=== PATIENT | female | born 1985 | race Caucasian/White ===

== ENCOUNTER 2022-11-14 10:30 | Outpatient (REF) | payer OTHER, SELFPAY ==
[2022-11-17 19:11] LABS: Age Gdln ACOG Testing Note (.); HPV Aptima Negative (Negative); IGP, Aptima HPV, rfx 16/18,45 Note (.)
== END 2022-11-14 10:31 | disposition home or self-care (01) ==
LOC: LAB 10:30
PROVIDERS: Visit Provider Obstetrics & Gynecology
DX: Z01.419 Encounter for gynecological examination (general) (routine) without abnormal findings (principal)
CPT/HCPCS: 87624; G0145

== ENCOUNTER 2023-01-24 23:42 | Emergency (ER) | payer OTHER, SELFPAY ==
[2023-01-24 23:51] VITALS: BP 158/98; PULSE 77; RESP 16; TEMP 36.6; O2SAT 96; BMI 26.5
--- NOTE | 2023-01-24 23:55 | ED_ITS ---
HPI - Chest Pain General Chief Complaint: Chest Pain Stated Complaint: CHEST PAIN Time Seen by Provider: 01/24/23 23:55 Source: patient and family Mode of arrival: Wheelchair Limitations: no limitations History of Present Illness HPI narrative: Patient presents to emergency department complaining of chest pain. Patient states she developed left-sided chest pain at about 10 PM. States the pain radiated to her left upper arm. She has a history of hypertension and was started on a new blood pressure medication losartan. She states the pain is not related to exertion. She was just sitting down when it started. Also alcohol and question she states she drinks 12 pack at least 4 times a week. She denies any nausea, vomiting, diarrhea, constipation, abdominal pain. She denies any recent upper respiratory infection symptoms. She states she was feeling like her heart was racing when it started. She was concerned because her father had a heart attack in his 40s, so they made her come to be evaluated. Patient states that she's been here she is feeling better. She denies any shortness of breath.Patient denies any history of drug abuse. Risk Factors Coronary artery disease risk factors: hypertension and family history of CAD before age 50 Related Data Home Medications Medication Instructions Recorded Confirmed losartan 50 mg-hydrochlorothiazide 1 tab PO DAILY 01/24/23 01/24/23 12.5 mg tablet Allergies Allergy/AdvReac Type Severity Reaction Status Date / Time No Known Drug Allergies Allergy Verified 01/24/23 23:50 Review of Systems ROS Status of ROS 10 or more systems reviewed and unremarkable except as noted in history and below [facility] PFS Social History Smoking status: Current every day smoker Exam Narrative Exam Narrative: Nurses notes and vital signs reviewed and patient is not hypoxic. General: Nontoxic, Smells alcohol ,Well-appearing and in no apparent distress. Skin: Warm, dry, no pallor noted. No Rash Head: Normocephalic, atraumatic. Neck: Supple, non-tender. Eye: Pupils are equal, round and EOMI. No scleral icterus. Ears, Nose, Mouth, and Throat: TM clear, no posterior oropharynx erythema or nasal mucosal hypertrophy, uvula is mid-line Oral mucosa is moist Cardiovascular: Regular Rate and Rhythm without murmur, gallop or rub. Respiratory: No accessory muscle use or respiratory distress. Lungs are clear to auscultation, no wheezing, rales or rhonchi Chest Wall: no tenderness Back: No midline thoracic or lumbar vertebral tenderness. No CVA tenderness Musculoskeletal: normal ROM, no calf or popliteal tenderness, no lower extremity edema/swelling GI: Abdomen is soft, non-distended. Normal bowel sounds. No masses appreciated. No tenderness to palpation. No rebound, guarding, or rigidity noted. Neurological: A&O x4. No cranial nerve dysfunction observed. No truncal ataxia. Moves all extremities. Sensation intact. Psychiatric: Cooperative and interactive. Normal mood and affect. Constitutional Vital Signs, click to edit/add: Last Vital Signs Temp 97.8 F 01/24/23 23:51 Pulse 77 01/24/23 23:51 Resp 16 01/24/23 23:51 BP 158/98 H 01/24/23 23:51 Pulse Ox 96 01/24/23 23:51 O2 Del Method Room Air 01/24/23 23:51 Course Vital Signs Vital signs: Vital Signs Temperature 97.8 F 01/24/23 23:51 Pulse Rate 77 01/24/23 23:51 Respiratory Rate 16 01/24/23 23:51 Blood Pressure 158/98 H 01/24/23 23:51 Pulse Oximetry 96 01/24/23 23:51 Oxygen Delivery Method Room Air 01/24/23 23:51 Temperature 97.8 F 01/24/23 23:51 Pulse Rate 77 01/24/23 23:51 Respiratory Rate 16 01/24/23 23:51 Blood Pressure 158/98 H 01/24/23 23:51 Pulse Oximetry 96 01/24/23 23:51 Oxygen Delivery Method Room Air 01/24/23 23:51 MDM - Chest Pain MDM Narrative Medical decision making narrative: Patient states is pain-free in the emergency department. EKG shows sinus rhythm at 72 bpm. Normal axis, no acute ischemic changes. Patient's heart score is less than 3. Patient was advised to cut down on alcohol. She'll follow up with primary care doctor regarding her stress test or an echocardiogram as an outpatient. At this time the patient is without objective evidence of an acute process requiring hospitalization or inpatient management. The patient has remained hemodynamically stable. No additional indication for emergent studies at this time. I answered all questions. Discussed discharge instructions including standard anticipatory guidance and what should prompt a return to the emergency department, including if they get worse are not getting better or develops any new or concerning symptoms. I've given them specific time frame in which to follow-up, and who to follow-up with. The patient demonstrates understanding. Patient is nontoxic and stable for discharge with outpatient follow-up. This note was created with the assistance of a speech recognition program. Although the intention is to generate documents that actually reflects the content of the visit, no guarantees can be provided that every mistake has been identified and corrected by editing. Differential Diagnosis Differential diagnosis: Likely fracture of rib, pneumothorax, atypical chest pain, costochondritis and chest pain Medical Records Data Attestation: I reviewed the patient's medical records. Lab Data Attestation: I reviewed the patient's lab results. Labs: Lab Results 01/24/23 01/25/23 Range/Units 23:59 01:00 WBC 8.1 (4.0-11.0) 10^3/uL RBC 4.37 (4.20-5.40) 10^6/uL Hgb 14.2 (12.0-16.0) g/dL Hct 40.7 (36.0-48.0) % MCV 93.1 (81.0-99.0) fL MCH 32.5 (26.7-34.0) pg MCHC 34.9 (29.9-35.2) g/dL RDW 13.6 (11.0-15.0) % Plt Count 173 (150-450) 10^3/uL MPV 9.9 (9.5-13.5) fL Neut % (Auto) 55.2 (43.0-75.0) % Lymph % (Auto) 33.2 (20.5-60.0) % [place] % (Auto) 9.1 (1.7-12.0) % Eos % (Auto) 1.4 (0.9-7.0) % Baso % (Auto) 0.7 (0.2-2.0) % Neut # (Auto) 4.5 (1.4-6.5) 10^3/uL Lymph # (Auto) 2.7 (1.2-3.8) 10^3/uL [place] # (Auto) 0.7 (0.3-0.8) 10^3/uL Eos # (Auto) 0.1 (0.0-0.7) 10^3/uL Baso # (Auto) 0.1 (0.0-0.1) 10^3/uL Abs Immat Gran (auto) 0.03 (0.00-0.03) 10^3/uL Imm/Tot Granulo (auto) 0.4 (0.0-0.5) % PT 10.3 (9.0-11.6) sec INR 0.97 APTT 34.1 (22.3-36.2) sec Sodium 128 L (136-145) mmol/L Potassium 3.4 L (3.5-5.1) mmol/L Chloride 94 L (98-107) mmol/L Carbon Dioxide 24.6 (21.0-32.0) mmol/L Anion Gap 12.8 BUN 13.0 (7.0-18.0) mg/dL Creatinine 0.64 (0.55-1.02) mg/dL Est GFR ( Amer) >60 (>=60) Est GFR (Non-Af Amer) >60 (>=60) BUN/Creatinine Ratio 20.3 Glucose 85 (74-106) mg/dL Calcium 7.7 L (8.5-10.1) mg/dL Total Bilirubin 0.5 (0.2-1.0) mg/dL AST 34 (15-37) U/L ALT 59 (14-59) U/L Alkaline Phosphatase 58 (46-116) U/L Troponin I High Sens <4.0 L <4.0 L (4.0-51.3) pg/mL Total Protein 7.7 (6.4-8.2) g/dL Albumin 4.1 (3.4-5.0) g/dL Globulin 3.6 g/dL Albumin/Globulin Ratio 1.1 Lipase 82.0 (73.0-393.0) U/L Ethanol Quant 299 mg/dL ECG Data Attestation: I personally reviewed and interpreted this ECG as follows: Heart Score History: Slightly/Non-Suspicious ECG: Normal Age: <45 years Risk Factors: 1 or 2 Risk Factors Troponin: <Normal Limit Total Heart Score Recommendations & Risks:: 1 Discharge Plan Discharge Chief Complaint: Chest Pain Clinical Impression: Alcohol abuse, Chest pain Patient Disposition: Home, Self-Care Time of Disposition Decision: 01:42 Condition: Good Mode of Transportation: EMS Prescriptions / Home Meds: No Action losartan-hydrochlorothiazide 50-12.5 mg tablet 1 tab PO DAILY Instructions: Chest Pain (ED), Alcohol Use Disorder (ED) Stand Alone Forms: Portal Instructions Referrals: Jerry Jensen DO [Primary Care Provider] - 1 week
--- NOTE | 2023-01-24 23:56 | ECG_ITS ---
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
--- NOTE | 2023-01-24 23:56 | XR_ITS ---
The [address] [address] Patient Name: KIRSTEN ZHU MRN: [id number] date: 1985 Sex: F Assigned Patient Location: ER Current Patient Location: ED.MAIN Accession/Order Number: [id number] Exam Date: 01/24/2023 23:58 Report Date: 01/25/2023 00:24 At the request of: IDANIA DRAKE Procedure: XR chest 1V EXAM: XR chest 1V HISTORY: Left-sided chest pain and left arm numbness. cp COMPARISON: None available TECHNIQUE: Single frontal view chest x-ray FINDINGS: No lung consolidation, large pleural effusions, pneumothorax, or acute bony abnormality. Cardiac size is unremarkable. XR/XR chest 1V IMPRESSION: No radiographic evidence for acute chest abnormality. Electronically authenticated by: MARGY SANZ Date: 01/25/2023 00:24
[2023-01-25 00:16] LABS: Basophils Absolute Auto 0.1 10^3/uL (0.0-0.1); Basophils Percent Auto 0.7 % (0.2-2.0); Eosinophils Absolute Auto 0.1 10^3/uL (0.0-0.7); Eosinophils Percent Auto 1.4 % (0.9-7.0); Hematocrit 40.7 % (36.0-48.0); Hemoglobin 14.2 g/dL (12.0-16.0); Immature Granulocytes Abs Auto 0.03 10^3/uL (0.00-0.03); Immature Granulocytes Pct Auto 0.4 % (0.0-0.5); Lymphocytes Absolute Auto 2.7 10^3/uL (1.2-3.8); Lymphocytes Percent Auto 33.2 % (20.5-60.0); Mean Corpuscular HGB Conc 34.9 g/dL (29.9-35.2); Mean Corpuscular Hemoglobin 32.5 pg (26.7-34.0); Mean Corpuscular Volume 93.1 fL (81.0-99.0); Mean Platelet Volume 9.9 fL (9.5-13.5); Monocytes Absolute Auto 0.7 10^3/uL (0.3-0.8); Monocytes Percent Auto 9.1 % (1.7-12.0); Neutrophils Absolute Auto 4.5 10^3/uL (1.4-6.5); Neutrophils Percent Auto 55.2 % (43.0-75.0); Platelet Count 173 10^3/uL (150-450); Red Blood Count 4.37 10^6/uL (4.20-5.40); Red Cell Distribution Width 13.6 % (11.0-15.0); White Blood Count 8.1 10^3/uL (4.0-11.0)
[2023-01-25 00:24] LABS: INR 0.97; Partial Thromboplastin Time 34.1 sec (22.3-36.2); Prothrombin Time 10.3 sec (9.0-11.6)
[2023-01-25 00:28] LABS: Alanine Aminotransferase 59 U/L (14-59); Albumin Globulin Ratio 1.1; Albumin Level 4.1 g/dL (3.4-5.0); Alkaline Phosphatase 58 U/L (46-116); Anion Gap 12.8; Aspartate Amino Transferase 34 U/L (15-37); BUN Creatinine Ratio 20.3; Bilirubin Total 0.5 mg/dL (0.2-1.0); Calcium 7.7 mg/dL (8.5-10.1); Carbon Dioxide 24.6 mmol/L (21.0-32.0); Chloride 94 mmol/L (98-107); Estimated GFR (African America >60 (>=60); Estimated GFR (Non-African Ame >60 (>=60); Ethanol 299 mg/dL; Globulin 3.6 g/dL; Glucose 85 mg/dL (74-106); Potassium 3.4 mmol/L (3.5-5.1); Sodium 128 mmol/L (136-145); Total Protein 7.7 g/dL (6.4-8.2); Troponin I High Sensitivity <4.0 pg/mL (4.0-51.3)
[2023-01-25] MEDS: 0.9 % SODIUM CHLORIDE 1,000 ML 1000 ML IV (00:59)
[2023-01-25 01:22] LABS: Troponin I High Sensitivity <4.0 pg/mL (4.0-51.3)
== END 2023-01-25 01:54 | disposition home or self-care (01) ==
PROVIDERS: Emergency Provider Emergency Medicine; PCP Internal Medicine
DX: R07.9 Chest pain, unspecified (principal); F10.10 Alcohol abuse, uncomplicated; Y90.8 Blood alcohol level of 240 mg/100 ml or more; I10 Essential (primary) hypertension; Z79.899 Other long term (current) drug therapy; Z82.49 Family history of ischemic heart disease and other diseases of the circulatory system; F17.210 Nicotine dependence, cigarettes, uncomplicated
CPT/HCPCS: 36415; 71045; 80053; 80320; 83690; 84484; 85025; 85610; 85730; 93005; 99285

== ENCOUNTER 2023-06-02 10:36 | Outpatient (OUT) | payer OTHER, SELFPAY ==
[2023-06-02 11:07] LABS: Basophils Absolute Auto 0.1 10^3/uL (0.0-0.1); Eosinophils Absolute Auto 0.1 10^3/uL (0.0-0.7); Eosinophils Percent Auto 1.6 % (0.9-7.0); Hematocrit 40.9 % (36.0-48.0); Hemoglobin 13.9 g/dL (12.0-16.0); Immature Granulocytes Abs Auto 0.02 10^3/uL (0.00-0.03); Immature Granulocytes Pct Auto 0.4 % (0.0-0.5); Lymphocytes Absolute Auto 1.5 10^3/uL (1.2-3.8); Lymphocytes Percent Auto 30.5 % (20.5-60.0); Mean Corpuscular Hemoglobin 32.1 pg (26.7-34.0); Mean Corpuscular Volume 94.5 fL (81.0-99.0); Mean Platelet Volume 9.8 fL (9.5-13.5); Monocytes Absolute Auto 0.6 10^3/uL (0.3-0.8); Neutrophils Absolute Auto 2.8 10^3/uL (1.4-6.5); Neutrophils Percent Auto 55.5 % (43.0-75.0); Platelet Count 171 10^3/uL (150-450); Red Blood Count 4.33 10^6/uL (4.20-5.40); Red Cell Distribution Width 13.4 % (11.0-15.0)
[2023-06-02 13:45] LABS: Alanine Aminotransferase 81 U/L (14-59); Albumin Level 3.8 g/dL (3.4-5.0); Alkaline Phosphatase 60 U/L (46-116); Anion Gap 9.8; Aspartate Amino Transferase 53 U/L (15-37); Bilirubin Total 0.5 mg/dL (0.2-1.0); Calcium 8.6 mg/dL (8.5-10.1); Carbon Dioxide 24.9 mmol/L (21.0-32.0); Chloride 95 mmol/L (98-107); Chol HDL Ratio 2.8; Cholesterol 222 mg/dL (<=200); Estimated GFR (African America >60 (>=60); Estimated GFR (Non-African Ame >60 (>=60); Globulin 3.7 g/dL; Glucose 82 mg/dL (74-106); HDL Cholesterol 78 mg/dL (40-60); Potassium 3.7 mmol/L (3.5-5.1); Sodium 126 mmol/L (136-145); Total Protein 7.5 g/dL (6.4-8.2); Triglycerides 80 mg/dL (<=150)
== END 2023-06-02 10:37 | disposition home or self-care (01) ==
LOC: LAB 10:38
PROVIDERS: PCP Internal Medicine; Visit Provider Internal Medicine
DX: Z00.00 Encounter for general adult medical examination without abnormal findings (principal)
CPT/HCPCS: 36415; 80053; 80061; 85025

== ENCOUNTER 2024-02-17 19:45 | Emergency (ER) | payer OTHER, SELFPAY ==
[2024-02-17] VITALS (20 sets, daily range): BP systolic 142–170; BP diastolic 92–120; PULSE 69–89; TEMP 36.7; O2SAT 97–100; BMI 25.6
--- NOTE | 2024-02-17 19:57 | CT_ITS ---
The [address] [address] Patient Name: KIRSTEN ZHU MRN: [id number] date: 1985 Sex: F Assigned Patient Location: ER Current Patient Location: Accession/Order Number: [id number] Exam Date: 02/17/2024 20:34 Report Date: 02/17/2024 21:23 At the request of: NATACHA BULLARD Procedure: CT head/brain wo con EXAMINATION: CT head/brain wo con TECHNIQUE: Axial CT images were obtained through the brain. Sagittal and coronal reformatted images were also obtained. Dose reduction techniques were achieved by using automated exposure control and/or adjustment of mA and/or kV according to patient size and/or use of iterative reconstruction technique. HISTORY: dizziness COMPARISON: None. FINDINGS: Intracranial Bleed: No evidence for acute intracranial bleed. Intracranial Mass: No evidence for mass lesion. No mass effect or midline shift. Extra-axial spaces: The ventricular system is normal caliber. White/Vasquez Matter: No acute cortical infarct. No significant white matter abnormality. Skull/Scalp: No evidence for skull fracture or lesion. Orbits and sinuses: The orbits appear unremarkable. The visualized paranasal sinuses are clear. CT/CT head/brain wo con IMPRESSION: No acute intracranial pathology. Electronically authenticated by: TISHA BASS Date: 02/17/2024 21:23
--- NOTE | 2024-02-17 19:57 | XR_ITS ---
The [address] [address] Patient Name: KIRSTEN ZHU MRN: [id number] date: 1985 Sex: F Assigned Patient Location: ER Current Patient Location: Accession/Order Number: [id number] Exam Date: 02/17/2024 20:34 Report Date: 02/17/2024 21:34 At the request of: NATACHA BULLARD Procedure: XR chest 2V EXAM: XR chest 2V TECHNIQUE: PA and lateral view of the chest HISTORY: dizziness COMPARISON: None. FINDINGS: The heart and mediastinum are unremarkable. The lung [place] are clear of any acute infiltrate, effusion or mass. No acute bony abnormality. XR/XR chest 2V IMPRESSION: No acute pulmonary disease. Electronically authenticated by: TISHA BASS Date: 02/17/2024 21:34
--- NOTE | 2024-02-17 19:57 | ECG_ITS ---
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
--- OUTSIDE RECORDS SUMMARY | 2024-02-17 20:05 | XMS_ITS | CCD ---
Author Organization [facility] Care Team Providers Care Motor Equipment Lieutenant Name Role Phone DAPHNE, DR JIMÉNEZ Admitting Unavailable DAPHNE, DR JIMÉNEZ Attending Unavailable REQUEST, DR RAINES LISTED Primary Care Unavaila ble DAPHNE, DR JIMÉNEZ Admitting Unavailable DAPHNE, DR JIMÉNEZ Attending Unavailable REQUEST, NONE LISTED Primary Care Unavaila ble DAPHNE, DR JIMÉNEZ Consulting Unavailable SHARP, BOY Consulting Unavailable KUCHIPUDI, MARY Consulting Unavailable LUDY, RAHAT Tellez Consulting Unavailable DAPHNE, DR JIMÉNEZ Admitting Unavailable DAPHNE, DR JIMÉNEZ Attending Unavailable REQUEST, DR RAINES LISTED Primary Care Unavaila ble DAPHNE, DR JIMÉNEZ Consulting Unavailable ZIEBER, DR PROSPER Wolf Consulting Unavailable DAPHNE, DR JIMÉNEZ Admitting Unavailable DAPHNE, DR JIMÉNEZ Attending Unavailable REQUEST, DR RAINES LISTED Primary Care Unavaila darwin ROTHMAN, DR JIMÉNEZ Consulting Unavailable Jerry Jensen Unavailable Medications Current Medications Medication Drug Class(es) Dates Sig (Normalized) Sig (Original) amLODIPine 5 mg oral tablet (3 sources) Dihydropyridine Calcium Channel Soraida Start: 07-26-2022 take 1 tablet by mouth every twenty-four hours amLODIPine Besylate 5 MG 1 tablet Orally Once a day for 30 days Jun, Active hydroCHLOROthiazide 12.5 mg / losartan potassium 50 mg oral tablet (6 sources) Thiazide Diuretic, Angiotensin 2 Receptor Soraida Start: 09-06-2022 take 1 tablet by mouth every twenty-four hours Losartan Potassium-HCTZ 50-12.5 MG 1 tablet Orally Once a day Aug, Active losartan potassium 50 mg oral tablet (2 sources) Angiotensin 2 Receptor Soraida Start: 06-05-2023 take 1 tablet by mouth every twenty-four hours Losartan Potassium 50 MG 1 tablet Orally Once a day for 30 days Replaces Losartan/HCTZ 08 Óscar, 2024 Active Problems Problem Classification Problem Date Documented Da te Episodic/Chronic Calculus of urinary tract (1 source) Personal history of urinary calculi; Translations: [PERSONAL HISTORY OF URINARY CALCULI] Onset: 04-28-2022 Episodic Contraceptive and procreative management (4 sources) Encounter for sterilization; Translations: [ENCOUNTER FOR STERILIZATION] Onset: 04-15-2022 Episodic Essential hypertension (12 sources) Essential (primary) hypertension; Translations: [Essential hypertension] Onset: 04-28-2022 Chronic Menstrual disorders (5 sources) Excessive and frequent menstruation with regular cycle; Translations: [EXCESS FREQ MENSTRUATION W/REG CYCL] Onset: 01-25-2022 Chronic Mood disorders (1 source) Bipolar disorder, unspecified; Translations: [BIPOLAR DISORDER UNSPECIFIED] Onset: 04-28-2022 Chronic Other aftercare (1 source) Other manager long term care (current) drug therapy; Translations: [OTH SNF CURRENT DRUG THERAPY] Onset: 04-28-2022 Episodic Other nutritional; endocrine; and metabolic disorders (1 source) Overweight Episodic Substance-related disorders (11 sources) Nicotine dependence, cigarettes, uncomplicated; Translations: [Nicotine dependence] Onset: 04-28-2022 Chronic Unclassified (1 source) CONTACT W/AND (SUSP) EXPOS COVID-19; Translations: [CONTACT W/AND (SUSP) EXPOS COVID-19] Onset: 04-16-2022 Results Test Name Value Interpretation Reference Range Facil ity CBC AUTO DIFFon 04-15-2022 BASO # 0.1 103/ul Normal 0.0-0.1 [facility] Comment on above: Performed By: #### C BC #### [facility] [address] [place] [address] Dr. Mary Samson Basophils/100 WBC (Bld) 1.3 % Normal 0.2-2.0 [facility] Comment on above: Performed By: #### C BC #### [facility] [address] [place] [address] Dr. Mary Samson EO # 0.1 103/ul Normal 0.0-0.7 [facility] Comment on above: Performed By: #### C BC #### [facility] [address] [place] [address] Dr. Mary Samson Eosinophils/100 WBC (Bld) 1.1 % Normal 0.9-7.0 [facility] Comment on above: Performed By: #### C BC #### [facility] [address] [place] [address] Dr. Mary Samson Erythrocyte distribution width (RBC) [Ratio] 16.8 % Critically high 11.0-15.0 [facility] Comment on above: Performed By: #### C BC #### [facility] [address] [place] [address] Dr. Mary Samson Hematocrit (Bld) [Volume fraction] 41.5 % Normal 36.0-48.0 [facility] Comment on above: Performed By: #### C BC #### [facility] [address] [place] [address] Dr. Mary Samson Hemoglobin (Bld) [Mass/Vol] 13.8 g/dL Normal 12.0-16.0 [facility] Comment on above: Performed By: #### C BC #### [facility] [address] [place] [address] Dr. Mary Samson IG # 0.02 10e3/ul Normal 0.00-0.03 [facility] Comment on above: Performed By: #### C BC #### [facility] [address] [place] [address] Dr. Mary Samson IG % 0.3 % Normal 0.0-0.5 [facility] Comment on above: Performed By: #### C BC #### [facility] [address] [place] [address] Dr. Mary Samson LYMPH # 2.1 103/ul Normal 1.2-3.8 [facility] Comment on above: Performed By: #### C BC #### [facility] [address] [place] [address] Dr. Mary Samson Lymphocytes/100 WBC (Bld) 33.5 % Normal 20.5-60.0 [facility] Comment on above: Performed By: #### C BC #### [facility] [address] [place] [address] Dr. Mary Samson MANUAL DIFF REQ NO Normal [facility] Comment on above: Performed By: #### C BC #### [facility] [address] [place] [address] Dr. Mary Samson MCH (RBC) [Entitic mass] 29.4 pg Normal 26.7-34.0 [facility] Comment on above: Performed By: #### C BC #### [facility] [address] [place] [address] Dr. Mary Samson MCHC (RBC) [Mass/Vol] 33.3 g/dL Normal 29.9-35.2 [facility] Comment on above: Performed By: #### C BC #### [facility] [address] [place] [address] Dr. Mary Samson MCV (RBC) [Entitic vol] 88.5 fL Normal 81.0-99.0 [facility] Comment on above: Performed By: #### C BC #### [facility] [address] [place] [address] Dr. Mary Samson MONO # 0.7 103/ul Normal 0.3-0.8 [facility] Comment on above: Performed By: #### C BC #### [facility] [address] [place] [address] Dr. Mayr Samson Monocytes/100 WBC (Bld) 10.9 % Normal 1.7-12.0 [facility] Comment on above: Performed By: #### C BC #### [facility] [address] [place] [address] Dr. Mary Samson NEUT # 3.3 103/ul Normal 1.4-6.5 [facility] Comment on above: Performed By: #### C BC #### [facility] [address] [place] [address] Dr. Mary Samsno Neutrophils/100 WBC (Bld) 52.9 % Normal 43.0-75.0 [facility] Comment on above: Performed By: #### C BC #### [facility] [address] [place] [address] Dr. Mary Samson Platelet mean volume (Bld) [Entitic vol] 10.1 fL Normal 9.5-13.5 [facility] Comment on above: Performed By: #### C BC #### [facility] [address] [address] [address] Mary Samson PLT 179 103/ul Normal 150-450 [facility] Comment on above: Performed By: #### C BC #### [facility] [address] [address] [address] Mary Samson RBC 4.69 106/ul Normal 4.20-5.40 [facility] Comment on above: Performed By: #### C BC #### [facility] [address] [address] [address] Mary Samson WBC 6.2 103/ul Normal 4.0-11.0 [facility] Comment on above: Performed By: #### C BC #### [facility] [address] [place] [address] Dr. Mary Samson PREG HCG QUALon 04-15-2022 , QUAL Negative Normal NEGATIVE [facility] Comment on above: Performed By: #### P REG #### [facility] [address] [address] [address] Mary Samson [facility] SARS-CoV-2 (COVID-19) RNA MARIOLA+probe Ql (Unsp spec) Not detected Normal NOT DETECTED [facility] Comment on above: Result Comment: This test is not yet approved or cleared by the [place] FDA. When there are no FDA-approved or cleared tests available, and other criteria are met, FDA can make tests available under an emergency access mechanism called an Emergency Use Authorization (EUA). The EUA for this test is supported by the Peer Counselor of Health and Human Service's (HHS's) declaration that circumstances exist to justify the emergency use of in vitro diagnostics for the detection and/or diagnosis of the virus that causes COVID-19. This EUA will remain in effect (meaning this test can be used) for the duration of the COVID-19 declaration justifying emergency of IVDs, unless it is terminated or revoked by FDA (after which the test may no longer be used). When diagnostic testing is negative, the possibility of a false negative should be considered in the context of a patient's recent exposures and the presence of clinical signs and symptoms consistent with SARS-CoV-2. Performed By: #### C VDTB #### [facility] [address] [place] [address] Dr. Mary Samson HCG-BETA SUBUNIT QUANTon hCG,Beta Subunit,Qnt,Serum <1 Normal [facility] Comment on above: Result Comment: Fema le (Non-) 0 - 5 (Postmenopausal) 0 - 8 . Female () Weeks of Gestation 3 6 - 71 4 10 - 750 5 627 - 7352 6 047 - 82875 7 [phone] 8 25168 -[phone] 9 32101 -305543 10 90080 -216507 12 24034 -521662 14 52058 - 31478 15 21619 - 85730 16 9771 - 94372 17 5605 - 62570 18 7828 - 51490 [employer] ECLIA methodology Performed By: #### H CGSUB #### [facility] [address] [place] [address] Dr. Mary Samson CBC AUTO DIFFon 01-25-2022 BASO # 0.1 103/ul Normal 0.0-0.1 [facility] Comment on above: Performed By: #### C BC #### [facility] [address] [place] [address] Dr. Mary Samson Basophils/100 WBC (Bld) 0.8 % Normal 0.2-2.0 [facility] Comment on above: Performed By: #### C BC #### [facility] [address] [place] [address] Dr. Mary Samson EO # 0.0 103/ul Normal 0.0-0.7 [facility] Comment on above: Performed By: #### C BC #### [facility] [address] [place] [address] Dr. Mary Samson Eosinophils/100 WBC (Bld) 0.4 % Critically low 0.9-7.0 [facility] Comment on above: Performed By: #### C BC #### [facility] [address] [place] [address] Dr. Mary Samson Erythrocyte distribution width (RBC) [Ratio] 17.3 % Critically high 11.0-15.0 [facility] Comment on above: Performed By: #### C BC #### [facility] [address] [place] [address] Dr. Mary Samson Hematocrit (Bld) [Volume fraction] 43.0 % Normal 36.0-48.0 [facility] Comment on above: Performed By: #### C BC #### [facility] [address] [place] [address] Dr. Mary Samson Hemoglobin (Bld) [Mass/Vol] 14.3 g/dL Normal 12.0-16.0 [facility] Comment on above: Performed By: #### C BC #### [facility] [address] [place] [address] Dr. Mary Samson IG # 0.03 10e3/ul Normal 0.00-0.03 [facility] Comment on above: Performed By: #### C BC #### [facility] [address] [place] [address] Dr. Mary Samson IG % 0.3 % Normal 0.0-0.5 [facility] Comment on above: Performed By: #### C BC #### [facility] [address] [place] [address] Dr. Mary Samson LYMPH # 1.7 103/ul Normal 1.2-3.8 [facility] Comment on above: Performed By: #### C BC #### [facility] [address] [place] [address] Dr. Mary Samson Lymphocytes/100 WBC (Bld) 18.2 % Critically low 20.5-60.0 [facility] Comment on above: Performed By: #### C BC #### [facility] [address] [place] [address] Dr. Mary Samson MANUAL DIFF REQ NO Normal [facility] Comment on above: Performed By: #### C BC #### [facility] [address] [place] [address] Dr. Mary Samson MCH (RBC) [Entitic mass] 29.7 pg Normal 26.7-34.0 [facility] Comment on above: Performed By: #### C BC #### [facility] [address] [place] [address] Dr. Mary Samson MCHC (RBC) [Mass/Vol] 33.3 g/dL Normal 29.9-35.2 [facility] Comment on above: Performed By: #### C BC #### [facility] [address] [place] [address] Dr. Mary Samson MCV (RBC) [Entitic vol] 89.2 fL Normal 81.0-99.0 [facility] Comment on above: Performed By: #### C BC #### [facility] [address] [place] [address] Dr. Mary Samson MONO # 0.9 103/ul Critically high 0.3-0.8 [facility] Comment on above: Performed By: #### C BC #### [facility] [address] [place] [address] Dr. Mary Samson Monocytes/100 WBC (Bld) 9.6 % Normal 1.7-12.0 [facility] Comment on above: Performed By: #### C BC #### [facility] [address] [place] [address] Dr. Mary Samson NEUT # 6.6 103/ul Critically high 1.4-6.5 [facility] Comment on above: Performed By: #### C BC #### [facility] [address] [place] [address] Dr. Mary Samson Neutrophils/100 WBC (Bld) 70.7 % Normal 43.0-75.0 [facility] Comment on above: Performed By: #### C BC #### [facility] [address] [place] [address] Dr. Mary Samson Platelet mean volume (Bld) [Entitic vol] 10.1 fL Normal 9.5-13.5 [facility] Comment on above: Performed By: #### C BC #### [facility] [address] [place] [address] Dr. Mary Samson PLT 149 103/ul Critically low 150-450 [facility] Comment on above: Performed By: #### C BC #### [facility] [address] [place] [address] Dr. Mary Samson RBC 4.82 106/ul Normal 4.20-5.40 [facility] Comment on above: Performed By: #### C BC #### [facility] [address] [place] [address] Dr. Mary Samson WBC 9.3 103/ul Normal 4.0-11.0 [facility] Comment on above: Performed By: #### C BC #### [facility] [address] [place] [address] Dr. Mary Samson PROTIMEon 01-25-2022 INR Coag (PPP) [Relative time] 1.02 {INR} Normal [facility] Comment on above: Performed By: #### P TT, PT #### [facility] [address] [place] [address] Dr. Mary Samson INR GUIDELINES SEE BELOW Normal [facility] Comment on above: Result Comment: EDD RED INR: 2.0 - 3.0 CONDITIONS NOT LISTED BELOW 2.5 - 3.5 FOR PROSTHETIC HEART VALVE REPLACEMENT 2.5 - 3.5 RECURRENT THROMBOSIS Performed By: #### P TT, PT #### [facility] [address] [place] [address] Dr. Mary Samson PT Coag (PPP) [Time] 11.0 s Normal 9.0-11.6 [facility] Comment on above: Performed By: #### P TT, PT #### [facility] [address] [place] [address] Dr. Mary Samson PTTon 01-25-2022 aPTT Coag (Bld) [Time] 30.9 s Normal 22.3-36.2 [facility] Comment on above: Performed By: #### P TT, PT #### [facility] [address] [place] [address] Dr. Mary Samson TSHon 08-30-2022 TSH 1.763 uIU/mL Normal 0.358-3.740 [facility] Comment on above: Performed By: #### T #### [facility] [address] [place] [address] Dr. Mary Samson US PELVIS AND TRANSVAGon US PELVIS AND TRANSVAG EXAMINATION: US PELVIS AND TRANSVAG HISTORY: Excessive and frequent menstruation COMPARISON: No relevant comparison available. TECHNIQUE: Transabdominal and transvaginal sonographic examination. FINDINGS: UTERUS: Normal size and appearance. Essure fallopian tube occlusive devices noted bilaterally. Uterus size: 9.9 x 4.9 x 5.5 cm ENDOMETRIUM: Normal homogeneous appearance. Endometrial thickness: 9 mm RIGHT OVARY: Normal size and appearance. Duplex Doppler demonstrates normal waveform and flow; resistive index 0.5. Ovary size: 3.9 x 2.4 x 3.6 cm LEFT OVARY: Normal size and appearance. Duplex Doppler demonstrates normal waveform and flow; resistive index 0.6. Ovary size: 3.3 x 2.0 x 3.7 cm CUL-DE-SAC: Unremarkable. No significant free fluid. BLADDER: Unremarkable. OTHER: None. IMPRESSION: 1. No abnormal or suspicious findings to account for patient's symptoms. Electronically authenticated by: PROSPER KIMBLE Date: 2022-01-25 15:57 Normal [facility] Vital Signs Date Time Vital Sign Value Performing Clinician Facility 05-16-2023 15:30-0500 Body height 160.02 cm [facility] Other [facility] Other 05-16-2023 15:30-0500 Body mass index (BMI) [Ratio] 25.72 kg/m2 [facility] Other [facility] Other 05-16-2023 15:30-0500 Body weight 65.86 kg [facility] Other [facility] Other 05-16-2023 15:30-0500 Diastolic blood pressure 80 mm[Hg] [facility] Other [facility] Other 05-16-2023 15:30-0500 Respiratory rate 12 /min Jerry Ball Other [facility] Other 05-16-2023 15:30-0500 Systolic blood pressure 118 mm[Hg] Jerry Ball Other [facility] Other 11-14-2022 15:15-0400 Body height 160.02 cm Jerry Ball Other [facility] Other 11-14-2022 15:15-0400 Body mass index (BMI) [Ratio] 25.29 kg/m2 Jerry Ball Other [facility] Other 11-14-2022 15:15-0400 Body weight 64.77 kg Jerry Ball Other [facility] Other 11-14-2022 15:15-0400 Diastolic blood pressure 76 mm[Hg] Jerry Ball Other [facility] Other 11-14-2022 15:15-0400 Respiratory rate 12 /min Jerry Ball Other [facility] Other 11-14-2022 15:15-0400 Systolic blood pressure 118 mm[Hg] Jerry Ball Other [facility] Other 07-26-2022 15:00-0500 Body height 160.02 cm Jerry Ball Other [facility] Other 07-26-2022 15:00-0500 Body mass index (BMI) [Ratio] 25.65 kg/m2 Jerry Ball Other [facility] Other 07-26-2022 15:00-0500 Body weight 65.68 kg Jerry Ball Other [facility] Other 07-26-2022 15:00-0500 Diastolic blood pressure 92 mm[Hg] Jerry Ball Other [facility] Other 07-26-2022 15:00-0500 Respiratory rate 12 /min Jerry Ball Other [facility] Other 07-26-2022 15:00-0500 Systolic blood pressure 142 mm[Hg] Jerry Ball Other [facility] Other Encounters Encounter Date Encounter Type Care Provider Facility Start: 06-12-2023 End: 06-12-2023 ambulatory Jerry Ball Other [facility] Other Start: 06-12-2023 Telephone encounter Jerry Ball [facility] Start: 06-02-2023 End: 06-02-2023 ambulatory Jerry Ball Other [facility] Other Start: 06-02-2023 Telephone encounter Jerry Ball [facility] Start: 05-16-2023 End: 05-16-2023 ambulatory Jerry Ball Other [facility] Other Start: 05-16-2023 Encounter for genera l adult medical examination without abnormal findings Jerry Ball [facility] Start: 05-16-2023 Periodic preventive med est patient 18-39 yrs Jerry Ball [facility] Start: 11-14-2022 End: 11-14-2022 ambulatory Jerry Ball Other [facility] Other Start: 11-14-2022 Office outpatient vi sit 15 minutes Jerry Ball [facility] Start: 09-06-2022 End: 09-06-2022 ambulatory Jerry Ball Other [facility] Other Start: 09-06-2022 Telephone encounter Jerry Ball [facility] Start: 07-26-2022 End: 07-26-2022 ambulatory Jerry Ball Other [facility] Other Start: 07-26-2022 Office outpatient ne w 30 minutes Jerry Jensen [facility] Start: 04-16-2022 Encounter for preprocedural laboratory examination DR JESSY ROTHMAN [facility] Start: 04-15-2022 End: 04-15-[address] JESSY ROTHMAN Facility:[facility] Start: 04-12-2022 End: 04-13-[address] JESSY ROTHMAN Facility:[facility] Start: 04-12-2022 End: 04-13-2022 Encounter for preprocedural laboratory examination DR JESSY ROTHMAN Facility:[facility] Start: 04-11-2022 Encounter for other preprocedural examination DR JESSY ROTHMAN [facility] Start: 04-07-2022 End: 04-08-[address] JESSY ROTHMAN Facility:[facility] Start: 04-07-2022 End: 04-08-2022 Encounter for other preprocedural examination DR JESSY ROTHMAN Facility:[facility] Start: 01-25-2022 End: 01-26-[address] JESSY ROTHMAN Facility:[facility] Payers Date Payer Category Payer Unknown [id number] 2.16.84 [id number] 1984 Unknown [id number] 2.16.84 [id number] 1984 Unknown [id number] 2.16.84 [id number] 1984 Unknown [id number] 2.16.84 [id number] 1959 Unknown [id number] Medicaid [id number] 2. [id number] Social History Date Type Detail Facility Sex Assigned At [facility] Other Evaluation note 05-16-2023 Note Date & Type Note Facility 05-16-2023 Evaluation note Encounter Date Diagnosis Assessment Notes Apr, Primary hypertension (ICD-10 - I10) This patient is instructed to consume a healthy, low-fat, low-salt diet. They are also encouraged to continue exercise to achieve/mainta in a normal BMI. Apr, Wellness examination (ICD-10 - Z00.00) Healthy diet and exercise. Reviewed age-appropriat e preventive testing recommended. Apr, Cigarette nicotine dependence without complication (ICD-10 - F17.210) This patient has been encouraged to quit tobacco use immediately. They are aware of the hazards associated with tobacco use, including but not limited to respiratory infections, vascular disease and cancers. [facility] Other Evaluation note 11-14-2022 Note Date & Type Note Facility 11-14-2022 Evaluation note Encounter Date Diagnosis Assessment Notes Oct, Primary hypertension (ICD-10 - I10) This patient is instructed to consume a healthy, low-fat, low-salt diet. They are also encouraged to continue exercise to achieve/mainta in a normal BMI. Oct, Cigarette nicotine dependence without complication (ICD-10 - F17.210) This patient has been encouraged to quit tobacco use immediately. They are aware of the hazards associated with tobacco use, including but not limited to respiratory infections, vascular disease and cancers. [facility] Other Evaluation note 09-06-2022 Note Date & Type Note Facility 09-06-2022 Evaluation note Encounter Date Diagnosis Assessment Notes Aug, Primary hypertension (ICD-10 - I10) [facility] Other Evaluation note 07-26-2022 Note Date & Type Note Facility 07-26-2022 Evaluation note Encounter Date Diagnosis Assessment Notes Jun, Primary hypertension (ICD-10 - I10) This patient is instructed to consume a healthy, low-fat, low-salt diet. They are also encouraged to continue exercise to achieve/mainta in a normal BMI. Jun, Overweight (ICD-10 - E66.3) This patient has been instructed on a low-fat, high-fiber diet. They are instructed to reduce calories, portion sizes and snacks. It is recommended that they exercise for 30 minutes, 3-5 times weekly. Jun, Cigarette nicotine dependence without complication (ICD-10 - F17.210) This patient has been encouraged to quit tobacco use immediately. They are aware of the hazards associated with tobacco use, including but not limited to respiratory infections, vascular disease and cancers. [facility] Other Clinical Note 04-15-2022 Note Date & Type Note Facility 04-15-2022 Note OPERATIVE NOTE OPERATION DATE: 04/21/2022 PROCEDURE: Endometrial Heather ablation with hysteroscopy with bilateral laparoscopic salpingectomy with [employer] robot assisting. PREOPERATIVE DIAGNOSIS: Request for sterilization, menorrhagia with regular cycle, encounter for removal of Essure. POSTOPERATIVE DIAGNOSIS: Request for sterilization, menorrhagia with regular cycle, encounter for removal of Essure. ANESTHESIA: General. SURGEON: Jessy Rothman D.O. PT SKILLED: ELLA Hernandez URINE OUTPUT: Yellow and clear. SPECIMEN: Essure coils and tubes. PROCEDURE: The patient was taken back to the OR where she was prepped and draped in the normal sterile fashion after being placed in the dorsal lithotomy position, after being placed under general anesthesia without difficulty. A weighted speculum was then placed into the vagina. The anterior lip was grasped with a single tooth tenaculum. The patient was then sounded to approximately 9 cm. The patient was gently sounded using Hegar dilators and the hysteroscope was passed through the cervix into the uterus where both ostia were seen. No gross evidence of polyps, fibroids or malignancy. The cervical length was noted to be 4 cm. The Heather ablation apparatus was set to approximately 5 cm in length. This was placed in through the cervix and into the uterus. After the seal was tested, at that time the total ablation of 120 seconds was performed with the Heather without difficulty. All instruments were removed from the vagina. A wet sponge stick was placed into the patient's vagina. Attention was then turned to the patient's abdomen, where a scalpel was used to make a small infraumbilical incision. The S retractors were then used to dissect the underlying layers until the fascia could be seen. The fascia was then grasped with Elizabeth clamps and tented up. A knife was then used to make a small incision to the fascia. The muscle was identified, at that time two sutures of #0 Vicryl on a GI needle was then used and placed through the fascia. The peritoneum was then identified and entered bluntly. The 10-4 Paty was then placed into the patient's abdomen. This was confirmed with direct visualization of the bowel, using the laparoscope. The patient's abdomen was then insufflated using approximately 4 liters of CO2 gas. Survey of the patient's abdomen demonstrated normal appearing ovaries, uterus and tubes. A second and third lateral ports, which was 7-8 in size and 5 mm in size, was then placed laterally after incision was made in the skin under direct visualization. The patient's tube on the patient's right side was identified. The tube was then tented up using a grasper. The LigaSure was used to transect and coagulate the mesosalpinx from the fimbriated end to the insertion at the uterus, the tube was amputated and removed in its entirety. Excellent hemostasis was noted. This was performed on the contralateral side as well. The lateral ports were then moved under direct visualization with excellent hemostasis. The abdomen was desufflated. All instruments were removed from the patient's abdomen. The fascia was closed using the #0 Vicryl on GI needle. The skin was closed using 4- 0 Vicryl subcuticularly. All instruments were removed from the patient's vagina as well. The patient was taken out of the dorsal lithotomy position and placed in the supine position and taken to recovery in stable condition. Sponge, lap and needle counts were correct x2. [facility] Evaluation note Note Date & Type Note Facility Evaluation note No Information [facility] Other History general Narrative - Reported Note Date & Type Note Facility History general Narrative - Reported Type Medical History Menorrhagia Surgical History Bunionectomy 2013 Hospitalization History see surgical history [facility] Other Summary Purpose Family History No Family History Records Found Advance Directives No Advanced Directives Records Found Additional Source Comments INFORMATION SOURCE (unrecogn ized section and content) DATE CREATED AUTHOR 05/11/2022 [facility] REASON FOR VISIT (unrecogniz ed section and content) High BPNo InformationBP log3 month Follow up6 month Follow upLab resultsBP check FOR RECORDS PERTAINING TO PATIENTS WHO ARE OR HAVE BEEN ENROLLED IN A CHEMICAL DEPENDENCY/SUBSTANCEABUSE PROGRAM, SOME INFORMATION MAY BE OMITTED. This clinical summary was aggregated from multiple sources. Caution should be exercised in using it in the provision of clinical care. This summary normalizes information from multiple sources, and as a consequence, information in this document may materially change the coding, format and clinical context of patient data. In addition, data may be omitted in some cases. CLINICAL DECISIONS SHOULD BE BASED ON THE PRIMARY CLINICAL RECORDS. [employer] [facility]. provides no warranty or guarantee of the accuracy or completeness of information in this document.
[2024-02-17 20:19] LABS: Basophils Percent Auto 0.6 % (0.2-2.0); Eosinophils Percent Auto 0.4 % (0.9-7.0); Hemoglobin 14.6 g/dL (12.0-16.0); Immature Granulocytes Abs Auto 0.02 10^3/uL (0.00-0.03); Immature Granulocytes Pct Auto 0.3 % (0.0-0.5); Lymphocytes Percent Auto 27.8 % (20.5-60.0); Mean Corpuscular HGB Conc 35.6 g/dL (29.9-35.2); Mean Corpuscular Volume 92.6 fL (81.0-99.0); Mean Platelet Volume 9.8 fL (9.5-13.5); Monocytes Absolute Auto 0.5 10^3/uL (0.3-0.8); Monocytes Percent Auto 7.4 % (1.7-12.0); Neutrophils Absolute Auto 4.6 10^3/uL (1.4-6.5); Neutrophils Percent Auto 63.5 % (43.0-75.0); Platelet Count 149 10^3/uL (150-450); Red Blood Count 4.43 10^6/uL (4.20-5.40); Red Cell Distribution Width 13.3 % (11.0-15.0); White Blood Count 7.2 10^3/uL (4.0-11.0)
--- NOTE | 2024-02-17 20:32 | ED.DIZZY1 ---
HPI - Dizziness General Chief Complaint: Dizziness Stated Complaint: chest pressure, lightheaded Time Seen by Provider: 02/17/24 19:54 Source: patient Mode of arrival: Wheelchair Limitations: no limitations History of Present Illness HPI Narrative: 38-year-old female presents here with a chief complaint of sudden onset of dizziness followed by chest pressure. She states dizziness is positional, denies a known history of vertigo. Denies any history of shortness of breath or PEs in the past. She has had no recent surgery travel or trauma. She says she has been anxious and has history of anxiety but did not feel that this is her symptoms . She is answering all questions appropriately. No neurological deficits initially. She is not febrile. This episode has been going on for the past couple of hours. patient states is Sitting in her garage watching football when the symptoms began and she laid flat on the garage floor to help the room stop spinning. MD elicited complaint: Reports dizziness and lightheadedness Related Data Home Medications ?Medication ?Instructions ?Recorded ?Confirmed losartan 50 mg tablet 50 mg PO QDAY 02/17/24 02/17/24 Previous Rx's ?Medication ?Instructions ?Recorded cephalexin 500 mg capsule 500 mg PO TID 7 days #21 caps 02/17/24 meclizine 50 mg tablet (Antivert) 50 mg PO DAILY PRN dizziness #14 02/17/24 tabs Allergies Allergy/AdvReac Type Severity Reaction Status Date / Time No Known Drug Allergies Allergy Verified 02/17/24 19:52 Review of Systems ROS Narrative All Systems are negative except as noted/marked.All systems reviewed and otherwise negative PFSH PFSH Social History Smoking status: Current every day smoker Exam Narrative Exam Narrative: Nurses note and vital signs reviewed and patient is not hypoxic. General: The patient appears well and in no apparent distress. Patient is resting comfortably on cart. Skin: Warm, dry, no pallor noted. There is no rash noted. Head: Normocephalic, atraumatic Eye: Normal conjunctiva, no drainage, EOMI. PERRL, no nystagmus Ears, Nose, Mouth, and Throat: oral mucosa is moist. Nares patent. Mouth without vesicles. Ear canals patent. Tm's without Erythema Cardiovascular: Regular Rate and Rhythm Respiratory: Patient is in no distress, no accessory muscle use, lungs are clear to auscultation, no wheezing, rales or rhonchi Back: non-tender, no CVA tenderness bilaterally to percussion. GI: Normal bowel sounds, no tenderness to palpation, no masses appreciated. No rebound, guarding, or rigidity noted. Musculoskeletal: The patient has no evidence of calf tenderness, no pitting edema, symmetrical pulses noted bilaterally Neurological: A&O x4, normal speech Psychiatric: Cooperative Constitutional Vital Signs, click to edit/add: Last Vital Signs Temp 98.1 F 02/17/24 19:53 Pulse 76 02/17/24 22:24 Resp 18 02/17/24 22:24 BP 142/92 H 02/17/24 22:24 Pulse Ox 100 02/17/24 22:24 O2 Del Method Room Air 02/17/24 22:24 Course Vital Signs Vital signs: Vital Signs Blood Pressure 167/104 H 02/17/24 19:52 Temperature 98.1 F 02/17/24 19:53 Pulse Rate 76 02/17/24 22:24 Respiratory Rate 18 02/17/24 22:24 Blood Pressure 142/92 H 02/17/24 22:24 Pulse Oximetry 100 02/17/24 22:24 Oxygen Delivery Method Room Air 02/17/24 22:24 MDM - Dizziness MDM Narrative Medical decision making narrative: 38-year-old female presents here with a chief complaint of sudden onset of dizziness followed by chest pressure. She states dizziness is positional, denies a known history of vertigo. Denies any history of shortness of breath or PEs in the past. She has had no recent surgery travel or trauma. She says she has been anxious and has history of anxiety but did not feel that this is her symptoms . She is answering all questions appropriately. No neurological deficits initially. She is not febrile. This episode has been going on for the past couple of hours. patient states is Sitting in her garage watching football when the symptoms began and she laid flat on the garage floor to help the room stop spinning. Presented to the emergency room chief complaint of sudden onset of dizziness. Upon arrival to the emergency room IV was established blood work was drawn including CBC CMP. He was minutes CMP showed a low sodium of 126. Head CT and chest x-ray were also performed was read negative by radiology. EKG showed normal sinus rhythm. Troponin was also negative. Patient was given a liter here of IV fluids for Zofran and also 25 mg of Antivert. The patient does have a UTI with positive nitrates as well. Keflex here. She was made aware of her UTI diagnosis as well. Patient will follow-up with Dr. Immanuel perez Patient does have a history of hypertension and takes losartan. Elevated upon arrival. Patient was given clonidine here blood pressure has improved to 150/93. Reviewing past medical records patient had sodium 126 in the past. I did review this with the patient. She today states she does feel better wishes to go home. I believe her dizziness today is due to vertigo. Medications did help improve her symptoms including dizziness. She was able to get up and walk to the restroom without any difficulties. Denies any dizziness. Patient will follow-up with her primary care physician she may go home with a diagnosis of hypertension, hyponatremia and dizziness. She will be discharged home prescription of Antivert. Patient verbalized understanding agrees with plan of care. Father is at bedside with her and also agrees with plan of care. Differential Diagnosis Differential diagnosis: Likely orthostatic hypotension and other (vertigo,dehydration, hyponatremia) Medical Records Attestation: I reviewed the patient's medical records. Medical records narrative: 38-year-old female presents here with a chief complaint of sudden onset of dizziness followed by chest pressure. She states dizziness is positional, denies a known history of vertigo. Denies any history of shortness of breath or PEs in the past. She has had no recent surgery travel or trauma. She says she has been anxious and has history of anxiety but did not feel that this is her symptoms . She is answering all questions appropriately. No neurological deficits initially. She is not febrile. This episode has been going on for the past couple of hours. patient states is Sitting in her garage watching football when the symptoms began and she laid flat on the garage floor to help the room stop spinning. Presented to the emergency room chief complaint of sudden onset of dizziness. Upon arrival to the emergency room IV was established blood work was drawn including CBC CMP. He was minutes CMP showed a low sodium of 126. Head CT and chest x-ray were also performed was read negative by radiology. EKG showed normal sinus rhythm. Troponin was also negative. Patient was given a liter here of IV fluids for Zofran and also 25 mg of Antivert. Patient does have a history of hypertension and takes losartan. Elevated upon arrival. Patient was given clonidine here blood pressure has improved to 150/93. Reviewing past medical records patient had sodium 126 in the past. I did review this with the patient. She today states she does feel better wishes to go home. I believe her dizziness today is due to vertigo. Medications did help improve her symptoms including dizziness. She was able to get up and walk to the restroom without any difficulties. Denies any dizziness. Patient will follow-up with her primary care physician she may go home with a diagnosis of hypertension, hyponatremia and dizziness. She will be discharged home prescription of Antivert. Patient verbalized understanding agrees with plan of care. Father is at bedside with her and also agrees with plan of care. Lab Data Attestation: I reviewed the patient's lab results. Labs: Lab Results 02/17/24 02/17/24 Range/Units 20:12 21:50 WBC 7.2 (4.0-11.0) 10^3/uL RBC 4.43 (4.20-5.40) 10^6/uL Hgb 14.6 (12.0-16.0) g/dL Hct 41.0 (36.0-48.0) % MCV 92.6 (81.0-99.0) fL MCH 33.0 (26.7-34.0) pg MCHC 35.6 H (29.9-35.2) g/dL RDW 13.3 (11.0-15.0) % Plt Count 149 L (150-450) 10^3/uL MPV 9.8 (9.5-13.5) fL Neut % (Auto) 63.5 (43.0-75.0) % Lymph % (Auto) 27.8 (20.5-60.0) % Stanley % (Auto) 7.4 (1.7-12.0) % Eos % (Auto) 0.4 L (0.9-7.0) % Baso % (Auto) 0.6 (0.2-2.0) % Neut # (Auto) 4.6 (1.4-6.5) 10^3/uL Lymph # (Auto) 2.0 (1.2-3.8) 10^3/uL Stanley # (Auto) 0.5 (0.3-0.8) 10^3/uL Eos # (Auto) 0.0 (0.0-0.7) 10^3/uL Baso # (Auto) 0.0 (0.0-0.1) 10^3/uL Abs Immat Gran (auto) 0.02 (0.00-0.03) 10^3/uL Imm/Tot Granulo (auto) 0.3 (0.0-0.5) % D-Dimer <0.19 (<=0.59) mg/L FEU Sodium 126 L (136-145) mmol/L Potassium 3.5 (3.5-5.1) mmol/L Chloride 89 L (98-107) mmol/L Carbon Dioxide 24.0 (21.0-32.0) mmol/L Anion Gap 16.5 BUN 5.0 L (7.0-18.0) mg/dL Creatinine 0.81 (0.55-1.02) mg/dL Est GFR ( Amer) >60 (>=60) Est GFR (Non-Af Amer) >60 (>=60) BUN/Creatinine Ratio 6.2 Glucose 89 (74-106) mg/dL Calcium 8.7 (8.5-10.1) mg/dL Total Bilirubin 0.6 (0.2-1.0) mg/dL AST 35 (15-37) U/L ALT 45 (14-59) U/L Alkaline Phosphatase 77 (46-116) U/L Troponin I High Sens 4.2 (4.0-51.3) pg/mL Total Protein 8.0 (6.4-8.2) g/dL Albumin 4.5 (3.4-5.0) g/dL Globulin 3.5 g/dL Albumin/Globulin Ratio 1.3 Urine Color Lt. yellow (YELLOW) Urine Clarity Clear (CLEAR) Urine pH 7.0 (5.0-9.0) Ur Specific [place] <=1.005 A (1.005-1.025) Urine Protein Negative (NEG/TRACE) mg/dL Urine Glucose (UA) Negative (NEGATIVE) mg/dL Urine Ketones Negative (NEGATIVE) mg/dL Urine Occult Blood Negative (NEGATIVE) Urine Nitrite Positive A (NEGATIVE) Urine Bilirubin Negative (NEGATIVE) Urine Urobilinogen 1.0 (0.2-1.0) EU/dL Ur Leukocyte Esterase Negative (NEGATIVE) Urine RBC 0-2 (0-2) #/HPF Urine WBC 0-2 A (NONE SEEN) #/HPF Ur Squamous Epith Cells Rare (NONE/RARE) #/LPF Urine Crystals None seen (None Seen) #/HPF Urine Bacteria Large A (NONE SEEN) #/HPF Urine Casts None seen (NONE SEEN) #/LPF Urine Mucus None seen (NONE SEEN) Ur Culture Indicated? Yes Ethanol Quant 68 mg/dL ECG Data Attestation: ?I have reviewed the pertinent ECG results. Interpretation: 2001 normal sinus rhythm with a rate of 60 bpm, NM interval 116 ms QRS duration [address] elevation or depression no STEMI Discharge Plan Discharge Chief Complaint: Dizziness Clinical Impression: Vertigo, Hypertension, Acute hyponatremia, UTI (urinary tract infection) Patient Disposition: Home, Self-Care Time of Disposition Decision: 22:04 Condition: Good Prescriptions / Home Meds: New meclizine [Antivert] 50 mg tablet 50 mg PO DAILY PRN (Reason: dizziness) Qty: 14 0RF cephalexin 500 mg capsule 500 mg PO TID 7 Days Qty: 21 0RF No Action losartan 50 mg tablet 50 mg PO QDAY Print Language: Latvian Instructions: Urinary Tract Infection in Women (ED), Heart Healthy Diet (ED), Hyponatremia (ED), Vertigo (ED), Hypertension (ED), Dizziness (ED) Referrals: Jerry Perez DO [Primary Care Provider] - 1 week Discharge Date/Time: 02/17/24 22:51
[2024-02-17 20:38] LABS: Alanine Aminotransferase 45 U/L (14-59); Albumin Globulin Ratio 1.3; Albumin Level 4.5 g/dL (3.4-5.0); Alkaline Phosphatase 77 U/L (46-116); Anion Gap 16.5; Aspartate Amino Transferase 35 U/L (15-37); BUN Creatinine Ratio 6.2; Bilirubin Total 0.6 mg/dL (0.2-1.0); Calcium 8.7 mg/dL (8.5-10.1); Chloride 89 mmol/L (98-107); Estimated GFR (African America >60 (>=60); Estimated GFR (Non-African Ame >60 (>=60); Globulin 3.5 g/dL; Glucose 89 mg/dL (74-106); Potassium 3.5 mmol/L (3.5-5.1); Sodium 126 mmol/L (136-145)
[2024-02-17 20:41] LABS: Troponin I High Sensitivity 4.2 pg/mL (4.0-51.3)
[2024-02-17 20:46] LABS: Ethanol 68 mg/dL
[2024-02-17] MEDS: 0.9 % SODIUM CHLORIDE 1,000 ML 1000 ML IV (20:46)
[2024-02-17] MEDS: ONDANSETRON PF 4 MG/2 ML VIAL IV (20:46)
[2024-02-17] MEDS: MECLIZINE HCL 12.5 MG TABLET 25 MG PO (20:46)
[2024-02-17 20:50] LABS: D Dimer <0.19 mg/L FEU (<=0.59)
[2024-02-17 21:59] LABS: Bilirubin Urine NEGATIVE (NEGATIVE); Blood Urine NEGATIVE (NEGATIVE); Clarity Urine CLEAR (CLEAR); Color Urine LT. YELLOW (YELLOW); Glucose Urine UA NEGATIVE (NEGATIVE); Ketones Urine NEGATIVE (NEGATIVE); Leukocyte Esterase Urine NEGATIVE (NEGATIVE); Nitrite Urine POSITIVE (NEGATIVE); Protein Urine NEGATIVE (NEG/TRACE); Specific Gravity Urine <=1.005 (1.005-1.025)
[2024-02-17] MEDS: CLONIDINE HCL 0.1 MG TABLET PO (22:04)
[2024-02-17 22:05] LABS: Bacteria Urine LARGE #/HPF (NONE SEEN); Cast Seen? NONE SEEN #/LPF (NONE SEEN); Crystals Seen? None Seen #/HPF (None Seen); Mucus Urine NONE SEEN (NONE SEEN); RBC Urine 0-2 #/HPF (0-2); Squamous Epithelial Cell Urine RARE #/LPF (NONE/RARE); Urine Culture Indicated YES; WBC Urine 0-2 #/HPF (NONE SEEN)
[2024-02-17] MEDS: KETOROLAC TROMETHAMINE 30 MG/ML VIAL IVP (22:05)
[2024-02-17] MEDS: CEPHALEXIN 500 MG CAPSULE PO (22:44)
== END 2024-02-17 22:51 | disposition home or self-care (01) ==
PROVIDERS: Physician Assistant; Emergency Provider Internal Medicine; PCP Internal Medicine
DX: E87.1 Hypo-osmolality and hyponatremia (principal); R42 Dizziness and giddiness; I10 Essential (primary) hypertension; N39.0 Urinary tract infection, site not specified; Z79.899 Other long term (current) drug therapy; F17.200 Nicotine dependence, unspecified, uncomplicated
CPT/HCPCS: 36415; 70450; 71046; 80053; 80320; 81001; 84484; 85025; 85378; 87086; 93005; 96361; 96374; 96375; 99285; J1885; J2405

== ENCOUNTER 2024-03-16 11:05 | Outpatient (OUT) | payer OTHER, SELFPAY ==
--- OUTSIDE RECORDS SUMMARY | 2024-03-16 11:08 | XMS_ITS | CCD ---
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 Mary Samson Basophils/100 WBC (Bld) 1.3 % Normal 0.2-2.0 [facility] Comment on above: Performed By: #### C BC #### [facility] [address] [place] [address] Dr. Mary Samson EO # 0.1 103/ul Normal 0.0-0.7 [facility] Comment on above: Performed By: #### C BC #### [facility] [address] [place] [address] Dr. Mary Samson Eosinophils/100 WBC (Bld) 1.1 % Normal 0.9-7.0 [facility] Comment on above: Performed By: #### C BC #### [facility] [address] [place] [address] Dr. Mary Samson Erythrocyte distribution width (RBC) [Ratio] 16.8 % Critically high 11.0-15.0 [facility] Comment on above: Performed By: #### C BC #### [facility] [address] [place] [address] Dr. Mary Samson Hematocrit (Bld) [Volume fraction] 41.5 % Normal 36.0-48.0 [facility] Comment on above: Performed By: #### C BC #### [facility] [address] [place] [address] Dr. Mary Samson Hemoglobin (Bld) [Mass/Vol] 13.8 g/dL Normal 12.0-16.0 [facility] Comment on above: Performed By: #### C BC #### [facility] [address] [place] [address] Dr. Mary Samson IG # 0.02 10e3/ul Normal 0.00-0.03 [facility] Comment on above: Performed By: #### C BC #### [facility] [address] [place] [address] Dr. Mary Samson IG % 0.3 % Normal 0.0-0.5 [facility] Comment on above: Performed By: #### C BC #### [facility] [address] [place] [address] Dr. Mary Samson LYMPH # 2.1 103/ul Normal 1.2-3.8 [facility] Comment on above: Performed By: #### C BC #### [facility] [address] [place] [address] Dr. Mary Samson Lymphocytes/100 WBC (Bld) 33.5 % Normal 20.5-60.0 [facility] Comment on above: Performed By: #### C BC #### [facility] [address] [place] [address] Dr. Mary Samson MANUAL DIFF REQ NO Normal [facility] Comment on above: Performed By: #### C BC #### [facility] [address] [place] [address] Dr. Mary Samson MCH (RBC) [Entitic mass] 29.4 pg Normal 26.7-34.0 [facility] Comment on above: Performed By: #### C BC #### [facility] [address] [place] [address] Dr. Mary Samson MCHC (RBC) [Mass/Vol] 33.3 g/dL Normal 29.9-35.2 [facility] Comment on above: Performed By: #### C BC #### [facility] [address] [place] [address] Dr. Mary Samson MCV (RBC) [Entitic vol] 88.5 fL Normal 81.0-99.0 [facility] Comment on above: Performed By: #### C BC #### [facility] [address] [place] [address] Dr. Mary Samson MONO # 0.7 103/ul Normal 0.3-0.8 [facility] Comment on above: Performed By: #### C BC #### [facility] [address] [place] [address] Dr. Mary Samson Monocytes/100 WBC (Bld) 10.9 % Normal 1.7-12.0 [facility] Comment on above: Performed By: #### C BC #### [facility] [address] [place] [address] Dr. Mary Samson NEUT # 3.3 103/ul Normal 1.4-6.5 [facility] Comment on above: Performed By: #### C BC #### [facility] [address] [place] [address] Dr. Mary Samson Neutrophils/100 WBC (Bld) 52.9 % Normal 43.0-75.0 [facility] Comment on above: Performed By: #### C BC #### [facility] [address] [place] [address] Dr. Mary Samson Platelet mean volume (Bld) [Entitic vol] 10.1 fL Normal 9.5-13.5 [facility] Comment on above: Performed By: #### C BC #### [facility] [address] [address] [address] Mary Samson PLT 179 103/ul Normal 150-450 [facility] Comment on above: Performed By: #### C BC #### [facility] [address] [address] [address] Mary Samson RBC 4.69 106/ul Normal 4.20-5.40 [facility] Comment on above: Performed By: #### C BC #### [facility] [address] [address] [address] Mary Samson WBC 6.2 103/ul Normal 4.0-11.0 [facility] Comment on above: Performed By: #### C BC #### [facility] [address] [place] [address] Dr. Mary Samson PREG HCG QUALon 04-15-2022 , QUAL Negative Normal NEGATIVE [facility] Comment on above: Performed By: #### P REG #### [facility] [address] [address] [address] Mary Sams[facility] SARS-CoV-2 (COVID-19) RNA MARIOLA+probe Ql (Unsp spec) Not detected Normal NOT DETECTED [facility] Comment on above: Result Comment: This test is not yet approved or cleared by the [place] FDA. When there are no FDA-approved or cleared tests available, and other criteria are met, FDA can make tests available under an emergency access mechanism called an Emergency Use Authorization (EUA). The EUA for this test is supported by the Therapeutic Riding Instructor of Health and Human Service's (HHS's) declaration [...] SARS-CoV-2. Performed By: #### C VDTB #### [facility] [address] [place] [address] Dr. Mary Samson HCG-BETA SUBUNIT QUANTon hCG,Beta Subunit,Qnt,Serum <1 Normal [facility] Comment on above: Result Comment: Fema le (Non-) 0 - 5 (Postmenopausal) 0 - 8 . Female () Weeks of Gestation 3 6 - 71 4 10 - 750 5 461 - 3867 6 870 - 42863 7 [phone] [id number] 8 22777 -[phone] 9 25057 -[phone] 10 25431 -170007 12 73636 -552132 14 04930 - 92611 15 55945 - 72630 16 0434 - 58121 17 9440 - 21348 18 9036 - 35171 [employer] ECLIA methodology Performed By: #### H CGSUB #### [facility] [address] [place] [address] Dr. Mary Samson CBC AUTO DIFFon 01-25-2022 BASO # 0.1 103/ul Normal 0.0-0.1 [facility] Comment on above: Performed By: #### C BC #### [facility] [address] [place] [address] Dr. Mary Samson Basophils/100 WBC (Bld) 0.8 % Normal 0.2-2.0 [facility] Comment on above: Performed By: #### C BC #### [facility] [address] [place] [address] Dr. Mary Samson EO # 0.0 103/ul Normal 0.0-0.7 [facility] Comment on above: Performed By: #### C BC #### [facility] [address] [place] [address] Dr. Mary Samson Eosinophils/100 WBC (Bld) 0.4 % Critically low 0.9-7.0 [facility] Comment on above: Performed By: #### C BC #### [facility] [address] [place] [address] Dr. Mary Samson Erythrocyte distribution width (RBC) [Ratio] 17.3 % Critically high 11.0-15.0 [facility] Comment on above: Performed By: #### C BC #### [facility] [address] [place] [address] Dr. Mary Samson Hematocrit (Bld) [Volume fraction] 43.0 % Normal 36.0-48.0 [facility] Comment on above: Performed By: #### C BC #### [facility] [address] [place] [address] Dr. Mary Samson Hemoglobin (Bld) [Mass/Vol] 14.3 g/dL Normal 12.0-16.0 [facility] Comment on above: Performed By: #### C BC #### [facility] [address] [place] [address] Dr. Mary Samson IG # 0.03 10e3/ul Normal 0.00-0.03 [facility] Comment on above: Performed By: #### C BC #### [facility] [address] [place] [address] Dr. Mary Samson IG % 0.3 % Normal 0.0-0.5 [facility] Comment on above: Performed By: #### C BC #### [facility] [address] [place] [address] Dr. Mary Samson LYMPH # 1.7 103/ul Normal 1.2-3.8 [facility] Comment on above: Performed By: #### C BC #### [facility] [address] [place] [address] Dr. Mary Samson Lymphocytes/100 WBC (Bld) 18.2 % Critically low 20.5-60.0 [facility] Comment on above: Performed By: #### C BC #### [facility] [address] [place] [address] Dr. Mary Samson MANUAL DIFF REQ NO Normal [facility] Comment on above: Performed By: #### C BC #### [facility] [address] [place] [address] Dr. Mary Samson MCH (RBC) [Entitic mass] 29.7 pg Normal 26.7-34.0 [facility] Comment on above: Performed By: #### C BC #### [facility] [address] [place] [address] Dr. Mary Samson MCHC (RBC) [Mass/Vol] 33.3 g/dL Normal 29.9-35.2 [facility] Comment on above: Performed By: #### C BC #### [facility] [address] [place] [address] Dr. Mary Samson MCV (RBC) [Entitic vol] 89.2 fL Normal 81.0-99.0 [facility] Comment on above: Performed By: #### C BC #### [facility] [address] [place] [address] Dr. Mary Samson MONO # 0.9 103/ul Critically high 0.3-0.8 [facility] Comment on above: Performed By: #### C BC #### [facility] [address] [place] [address] Dr. Mary Samson Monocytes/100 WBC (Bld) 9.6 % Normal 1.7-12.0 [facility] Comment on above: Performed By: #### C BC #### [facility] [address] [place] [address] Dr. Mary Samson NEUT # 6.6 103/ul Critically high 1.4-6.5 [facility] Comment on above: Performed By: #### C BC #### [facility] [address] [place] [address] Dr. Mary Samson Neutrophils/100 WBC (Bld) 70.7 % Normal 43.0-75.0 [facility] Comment on above: Performed By: #### C BC #### [facility] [address] [place] [address] Dr. Mary Samson Platelet mean volume (Bld) [Entitic vol] 10.1 fL Normal 9.5-13.5 [facility] Comment on above: Performed By: #### C BC #### [facility] [address] [place] [address] Dr. Mary Samson PLT 149 103/ul Critically low 150-450 [facility] Comment on above: Performed By: #### C BC #### [facility] [address] [place] [address] Dr. Mary Samson RBC 4.82 106/ul Normal 4.20-5.40 [facility] Comment on above: Performed By: #### C BC #### [facility] [address] [place] [address] Dr. Mary Samson WBC 9.3 103/ul Normal 4.0-11.0 [facility] Comment on above: Performed By: #### C BC #### [facility] [address] [place] [address] Dr. Mary Samson PROTIMEon 01-25-2022 INR Coag (PPP) [Relative time] 1.02 {INR} Normal [facility] Comment on above: Performed By: #### P TT, PT #### [facility] [address] [place] [address] Dr. Mary Samson INR GUIDELINES SEE BELOW Normal [facility] Comment on above: Result Comment: EDD RED INR: 2.0 - 3.0 CONDITIONS NOT LISTED BELOW 2.5 - 3.5 FOR PROSTHETIC HEART VALVE REPLACEMENT 2.5 - 3.5 RECURRENT THROMBOSIS Performed By: #### P TT, PT #### [facility] [address] [place] [address] Dr. Mary Samson PT Coag (PPP) [Time] 11.0 s Normal 9.0-11.6 [facility] Comment on above: Performed By: #### P TT, PT #### [facility] [address] [place] [address] Dr. Mary Samson PTTon 01-25-2022 aPTT Coag (Bld) [Time] 30.9 s Normal 22.3-36.2 [facility] Comment on above: Performed By: #### P TT, PT #### [facility] [address] [place] [address] Dr. Mary Samson TSHon 08-30-2022 TSH 1.763 uIU/mL Normal 0.358-3.740 [facility] Comment on above: Performed By: #### T #### [facility] [address] [place] [address] Dr. Mary Samson US PELVIS AND TRANSVAGon [...] by: PROSPER KIMBLE Date: 2022-01-25 15:57 Normal [facility] Vital Signs Date Time Vital Sign Value Performing Clinician Facility 05-16-2023 15:30-0500 Body height 160.02 cm [facility] Other [facility] [facility] Other 05-16-2023 15:30-0500 Body mass index (BMI) [Ratio] 25.72 kg/m2 [facility] Other [facility] Other 05-16-2023 15:30-0500 Body weight 65.86 kg [facility] Other [facility] Other 05-16-2023 15:30-0500 Diastolic blood pressure 80 mm[Hg] [facility] Other [facility] Other 05-16-2023 15:30-0500 Respiratory rate 12 /min Jerry Ball Other [facility] Other 05-16-2023 15:30-0500 Systolic blood pressure 118 mm[Hg] Jerry Ball Other [facility] Other 11-14-2022 15:15-0400 Body height 160.02 cm Jerry Ball Other [facility] Other 11-14-2022 15:15-0400 Body mass index (BMI) [Ratio] 25.29 kg/m2 Jerry Ball Other [facility] Other 11-14-2022 15:15-0400 Body weight 64.77 kg Jerry Ball Other [facility] Other 11-14-2022 15:15-0400 Diastolic blood pressure 76 mm[Hg] Jerry Ball Other [facility] Other 11-14-2022 15:15-0400 Respiratory rate 12 /min Jerry Ball Other [facility] Other 11-14-2022 15:15-0400 Systolic blood pressure 118 mm[Hg] Jerry Ball Other [facility] Other 07-26-2022 15:00-0500 Body height 160.02 cm Jerry Ball Other [facility] Other 07-26-2022 15:00-0500 Body mass index (BMI) [Ratio] 25.65 kg/m2 Jerry Ball Other [facility] Other 07-26-2022 15:00-0500 Body weight 65.68 kg Jerry Ball Other [facility] Other 07-26-2022 15:00-0500 Diastolic blood pressure 92 mm[Hg] Jerry Ball Other [facility] Other 07-26-2022 15:00-0500 Respiratory rate 12 /min Jerry Ball Other [facility] Other 07-26-2022 15:00-0500 Systolic blood pressure 142 mm[Hg] Jerry Ball Other [facility] Other Encounters Encounter Date Encounter Type Care Provider Facility Start: 06-12-2023 End: 06-12-2023 ambulatory Jerry Ball Other [facility] Other Start: 06-12-2023 Telephone encounter Jerry Ball [facility] Start: 06-02-2023 End: 06-02-2023 ambulatory Jerry Ball Other [facility] Other Start: 06-02-2023 Telephone encounter Jerry Ball [facility] Start: 05-16-2023 End: 05-16-2023 ambulatory Jerry Ball Other [facility] Other Start: 05-16-2023 Encounter for genera l adult medical examination without abnormal findings Jerry Ball [facility] Start: 05-16-2023 Periodic preventive med est patient 18-39 yrs Jerry Ball [facility] Start: 11-14-2022 End: 11-14-2022 ambulatory Jerry Ball Other [facility] Other Start: 11-14-2022 Office outpatient vi sit 15 minutes Jerry Ball [facility] Start: 09-06-2022 End: 09-06-2022 ambulatory Jerry Ball Other [facility] Other Start: 09-06-2022 Telephone encounter Jerry Ball [facility] Start: 07-26-2022 End: 07-26-2022 ambulatory Jerry Ball Other [facility] Other Start: 07-26-2022 Office outpatient ne w 30 minutes Jerry Jensen [facility] Start: 04-16-2022 Encounter for preprocedural laboratory examination DR JESSY ROTHMAN [facility] Start: 04-15-2022 End: 04-15-[address] JESSY ROTHMAN Facility:[facility] Start: 04-12-2022 End: 04-13-[address] JESSY ROTHMAN Facility:[facility] Start: 04-12-2022 End: 04-13-2022 Encounter for preprocedural laboratory examination DR JESSY ROTHMAN Facility:[facility] Start: 04-11-2022 Encounter for other preprocedural examination DR JESSY ROTHMAN [facility] Start: 04-07-2022 End: 04-08-[address] JESSY ROTHMAN Facility:[facility] Start: 04-07-2022 End: 04-08-2022 Encounter for other preprocedural examination DR JESSY ROTHMAN Facility:[facility] Start: 01-25-2022 End: 01-26-[address] JESSY ROTHMAN Facility:[facility] Payers Date Payer Category Payer Unknown [id number] 2.16.84 [id number] 1984 Unknown [id number] 2.16.84 [id number] 1984 Unknown [id number] 2.16.84 [id number] 1984 Unknown [id number] 2.16.84 [id number] 1959 Unknown [id number] Medicaid [id number] Social History Date Type Detail Facility Sex Assigned At [employer] Other Evaluation note 05-16-2023 Note Date & [...] to respiratory infections, vascular disease and cancers. [employer] [facility] Other Evaluation note 11-14-2022 Note Date & [...] to respiratory infections, vascular disease and cancers. [facility] [facility] Other Evaluation note 09-06-2022 Note Date & Type Note Facility 09-06-2022 Evaluation note Encounter Date Diagnosis Assessment Notes Aug, Primary hypertension (ICD-10 - I10) [facility] Other Evaluation note 07-26-2022 Note Date & [...] to respiratory infections, vascular disease and cancers. [employer] [facility] Other Clinical Note 04-15-2022 Note Date & [...] Essure. ANESTHESIA: General. SURGEON: Jessy Rothman D.O. LOCKSMITH HELPER: ELLA Hernandez URINE OUTPUT: Yellow and clear. [...] and needle counts were correct x2. [facility] Evaluation note Note Date & Type Note Facility Evaluation note No Information [facility] [employer] Other History general Narrative - Reported Note Date & Type Note Facility History general Narrative - Reported Type Medical History Menorrhagia Surgical History Bunionectomy 2013 Hospitalization History see surgical history [facility] [employer] Other Summary Purpose Family History No Family History Records Found Advance Directives No Advanced Directives Records Found Additional Source Comments INFORMATION SOURCE (unrecogn ized section and content) DATE CREATED AUTHOR 05/11/2022 [facility] REASON FOR VISIT (unrecogniz ed section [...] BE BASED ON THE PRIMARY CLINICAL RECORDS. [employer] [facility]. provides no warranty or guarantee of the accuracy or completeness of information in this document.
[2024-03-16 11:28] LABS: Sodium Urine Random 14 mmol/L (30-90)
[2024-03-16 11:31] LABS: Anion Gap 14.6; BUN Creatinine Ratio 8.5; Calcium 8.7 mg/dL (8.5-10.1); Carbon Dioxide 26.4 mmol/L (21.0-32.0); Chloride 99 mmol/L (98-107); Estimated GFR (African America >60 (>=60 mL/min/1.73m^2); Estimated GFR (Non-African Ame >60 (>=60 mL/min/1.73m^2); Glucose 90 mg/dL (74-106); Sodium 136 mmol/L (136-145)
== END 2024-03-16 11:06 | disposition home or self-care (01) ==
PROVIDERS: PCP Internal Medicine; Visit Provider Internal Medicine
DX: E87.1 Hypo-osmolality and hyponatremia (principal)
CPT/HCPCS: 36415; 80048; 83930; 83935; 84300